=== PATIENT | female | born 1975 | race Caucasian/White ===

== ENCOUNTER 2017-08-17 10:52 | Inpatient (IN) ==
[2017-08-17] MEDS ORDERED: CeFAZolin Syr 2,000MG/20 ML 2,000 MG/20 ML SYRINGE IVPB ONE (11:38)
[2017-08-17] MEDS ORDERED: Lidocaine -MPF 1% 2 ML VIAL ID ONE (11:38)
--- NOTE | 2017-08-17 11:42 | Anesthesia Evaluation PreOp ---
Date of Encounter: 08/17/17 Time of Encounter: 11:39 - Past History Planned Operation: Lap assisted hysterectomy, LSO, poss BSO Cardiac History: Denies any Significant Hx Pulmonary History: Denies Any Significant HX [employer] DE[employer]ER[employer] History: Other (Vertigo) Other Medical History: Other (Irregular bleeding, Pelvic pain, Dysmenorrhea, Subserous leiomyoma of uterus) Anesthesia History: No Prior Anesthetic Complications, Past Anesthesia ( appendectomy, section x2, left ovarian cyst, tubal ligation) : No Test: Negative Alcohol Use: none Drug use: none Medications and Allergies Ketorolac [Toradol] 10 mg PO Q6HR #8 tablet 08/02/17 [Rx] 3 Allergy/AdvReac Type Severity Reaction Status Date / Time iodine Allergy Anaphylaxis Verified 08/02/17 13:00 - Meds/Allergy Pre-op Review Medications Reviewed: Yes Allergies Reviewed: Yes Beta Blockers on Current Med List: No Anesthesia Results - Labs Laboratory Tests 08/02/17 08/02/17 08/02/17 13:00 13:37 13:37 Hgb 14.7 Hct 42.8 Plt Count 274 PT 11.4 INR 1.1 APTT 29.8 Sodium Potassium BUN Creatinine Glucose Calcium Urine Test Negative 08/02/17 13:37 Hgb Hct Plt Count PT INR APTT Sodium 138 Potassium 3.9 BUN 15 Creatinine 1.14 H Glucose 108 H Calcium 9.6 Urine Test Anesthesia Exam O2 Sat Height 5' 10" Height 1.73 m Weight 104.326 kg Vital Signs Temp Pulse Resp BP Pulse Ox 99.2 F 72 18 115/79 97 08/17/17 11:27 08/17/17 11:27 08/17/17 11:27 08/17/17 11:27 08/17/17 11:27 NPO (# of Hours): >8 - HEENT Mallampati: I Teeth: Normal Oral Opening: Greater than 3 - Cardiac Rhythm: Regular - Pulmonary Breath Sounds: bilateral Clear Anesthesia Assess/Plan ASA Score: 2 Modified [place] Scale for Level of Consciousness: Cooperative, oriented, and tranquil Anesthetic Plan: General Monitoring Plan: Standard Monitors Recovery Plan: PACU Anes Supervising Prov Stmt: I have participated in the evaluation of this patient. Patient informed and consented. Risks, benefits, and alternatives discussed. Patient wishes to proceed.
[2017-08-17] MEDS: Ringers Solution, Lactated 1,000 ML IVC SCH ×3 (11:50→16:53)
[2017-08-17] MEDS ORDERED: Lidocaine/EPI 1:100k 1% 20 ML VIAL ONE (12:14)
[2017-08-17] MEDS ORDERED: Pregabalin 75 MG CAPSULE PO ONE (12:22)
[2017-08-17] MEDS ORDERED: Lidocaine -MPF 2% 2 ML VIAL ONE (12:37)
[2017-08-17] MEDS ORDERED: Dexamethasone 4 MG/ML VIAL ONE (12:37)
[2017-08-17] MEDS ORDERED: *HR* FentaNYL (PF) 100 MCG/2 ML VIAL ONE (12:38)
[2017-08-17] MEDS ORDERED: *HR* Propofol 200 MG/20 ML VIAL IVP ONE (12:39)
[2017-08-17] MEDS ORDERED: *HR* Midazolam HCl 2 MG/2 ML VIAL ONE (12:39)
--- NOTE | 2017-08-17 12:45 | History & Physical Report ---
Date of Encounter: 08/17/17 Time of Encounter: 12:44 24 Hour HP Update - Instructions Instructions: If the History and Physical is less than 30 days old and was completed prior to A.M. admission and or procedure and has NOT been updated on calendar day of procedure please complete this update prior to performing procedure. - Update Patient reports changes in Medical Condition: No Changes in examination, assessment, or condition: No Changes in Medication: No Preop tests/diagnostics Reviewed: Yes Surgery Remains Indicated: Yes Consent for Planned Operative Procedure(s) Verified: Yes - Pre-Operative Checklist Preoperative Checklist Indicated: Yes Prophylactic Antibiotic Ordered: Yes Home Medications Include Beta Socorro: No Beta Socorro Taken Today (Day of Surgery): No Beta Socorro Taken Yesterday (Day Prior to Surgery): No Is VTE Prophylaxis Indicated?: Yes
[2017-08-17] MEDS ORDERED: Ketorolac 30 MG/ML VIAL ONE (13:31)
[2017-08-17] MEDS ORDERED: Ondansetron 4 MG/2 ML VIAL ONE (13:34)
[2017-08-17] MEDS ORDERED: *HR* HYDROmorphone 2 MG/ML SYRINGE ONE (13:57)
[2017-08-17] MEDS ORDERED: *HR* HYDROmorphone (PF) 1 MG/ML SYRINGE IVP PRN ×2 (14:46→16:54)
[2017-08-17] MEDS ORDERED: *HR* Promethazine 25 MG/ML VIAL IVP PRN (14:46)
--- NOTE | 2017-08-17 16:13 | Anesthesia Evaluation Post Op ---
Date of Encounter: 08/17/17 Time of Encounter: 16:13 - Vital Signs Vital Signs: vss - Lungs Lungs: Clear Ascult./Percussion - Airway Airway: Non-obstructed - Cardiovascular Baseline Rhythm - Mental Status Mental Status: Asleep with brisk response to light stimulation - Pain Pain Scale used: [place] (Faces) - Nausea Vomiting Nausea Vomiting: Not Present - Hydration Hydration: Ice chips - Discharge PostOp Status: Transfer Patient to floor
--- NOTE | 2017-08-17 16:20 | OB/GYN Procedure Note ---
Hysterectomy - Diagnosis Date of procedure: 08/17/17 Hysterectomy pre-op: chronic pelvic pain, menorrhagia, symptomatic leiomyomata Post-op diagnosis: other (Pelvic adhesions) - Procedure Hysterectomy procedure: total abdominal hysterectomy, left salpingo oophorectomy , other (Lysis of adhesions, cystoscopy), bilateral salpingectomy Surgeon: Anup Durham [employer] Social Worker: Jacquie Carmona Anesthesia Type: General Estimated blood loss (cc): 800 Complications: none Fluids: crystalloid Specimens: uterus, cervix, left ovary, right fallopian tube, left fallopian tube Findings: Dense adhesions between bowel and anterior abdominal wall from umbilicus to the right lower quadrant and right upper quadrant. Enlarged uterus with large fibroid and lower uterine segment. Normal right ovary and left ovary. Normal fallopian tubes bilaterally. Normal bladder with patent bilateral ureters and of procedure. Disposition: PACU Narrative: Patient's a 41-year-old female long history of prolonged irregular heavy bleeding. She also has severe pelvic pain. She is recently been the emergency room ultrasound showed an enlarged uterus. She was put on progesterone bleeding did slow. She has history of prior appendectomy prior cystectomy and history of section 2. She desired definitive surgical management with hysterectomy bilateral salpingectomy and left oophrectomy. She did desire to leave right ovary of possible. We did consent for possible laparoscopic- assisted vaginal hysterectomy with left salpingo-oophrectomy. Possible right salpingo-oophorectomy if right ovary was abnormal. She did agree that she may have dense pelvic adhesions and did consent for possible open hysterectomy if needed. She is aware of operative risks and signed appropriate consent. Description procedure: Patient was taken operating room where general anesthesia was administered. She is prepped draped in usual sterile fashion low dorsolithotomy position. Bladder was drained of clear urine with Heller catheter. Cervix was visualized and grasped single-toothed tenaculum and acorn uterine manipulator was placed and cervix. Scalpel was used to make 5 mm incision in the left upper quadrant. 5 mm trocar was introduced insufflation was performed. Dense adhesions were noted between the bowel and omentum and anterior abdominal wall from the level of the umbilicus to approximately just above the uterus. There were also adhesions in the right lower quadrant and right upper quadrant. These adhesions included loops of small bowel to the anterior abdominal wall and I felt that it would not be safe to proceed with laparoscopy. There were relatively little adhesions and lower pelvis over the uterus and I felt that things still skin incision with open procedure would be the best route to avoid adhesions and possible complications. This point trocar was removed incision was closed with 4-0 Vicryl. Single-tooth tenaculum and acorn uterine manipulator was removed. I changed my gown and gloves and Pfannenstiel incision was then made. I sharply took this down the rectus fascia which was incised the midline fascial incision was extended bilaterally. Rectus muscles divided midline peritoneum was entered sharply. Peritoneal incision was extended bilaterally. There is some omental adhesions in the right lower quadrant to the anterior abdominal wall these were sharply taken down. Patient was placed in Trendelenburg position. O'Vic-O'Messer retractor was placed and bowel were packed out of the operative field. Uterus was pulled upwards with 2 Bina clamps around the corneal uterus from each side. Right ovary was normal and therefore per patient's request right ovary was left in place. Right fallopian tube was pulled upwards LigaSure was used to cauterize and transect the mesosalpinx. LigaSure was taken across utero- ovarian ligament. LigaSure was then taken across the round ligament on the right side. There were adhesions between the bladder and the snf up the lower uterus. Metzenbaum scissors were used to take these adhesions down. These adhesions were sharply taken down over top of the cervix. Further cauterized the round ligaments on the right side with LigaSure this was then transected. Infundibulopelvic ligament was identified on the left side LigaSure was taken across this twice and then proximal and to the uterus I transected the infundibulopelvic ligament. Round ligament on the right side was then cauterized and transected with LigaSure. Broad ligament was then cauterized and transected with LigaSure. I further dissected the adhesions down off the lower cervix. There was a fair amount of oozing was I did this controlled this the best I could. This point was difficult to visualize the cervix because of the large fibroid on the lower uterine segment. Curved Angie clamps across the parametrium on each side these were clamped transected and ligated with 0 Vicryl suture. This point was able to transect off the cervix and the uterus and fibroid and lower uterine segment. This point there was some brisk bleeding from ascending vessels from the cervix. This accounts for most of the blood loss of the procedure. I did place a straight Heaneys along the cervix on each side and pulled upwards. There clot was used to grasp the cervix and pulled upwards. I transected across proximally from the straight Angie clamps right side long cervix and ligated with 0 Vicryl suture. Curved Angie clamps placed along the cervix these were transected and ligated with 0 Vicryl suture. 2 more curved Angie clamps were used along the top of the vagina below the cervix I transected these risks of cervix was removed the vagina is was closed with 0 Vicryl suture. Third irrigation was performed there was some oozing from the midline of the vagina I did find an opening along the midline of the vagina this was closed with 0 Vicryl suture again irrigation was performed hemostasis was ensured there were some oozing along the left broad ligament there was a bleeder noted which was grasped with Angie clamp and cauterized and hemostasis was ensured this point we watched and there is no further active bleeding I did give him performed cystoscopy both ureters were patent and there is no evidence of bladder trauma. Again we inspected the pelvis and there was no further active bleeding. Fascia was closed 0 Vicryl in running manner. Deep subcutaneous tissue was closed with several 0 chromic sutures in an interrupted manner. Skin edges reapproximated with mariposa. Then the procedure all sponge counts counts are correct patient was taken recovery in good condition.
[2017-08-17 16:31] LABS: Hematocrit 35.4 % (35.3-44.9); Hemoglobin 12.3 g/dL (11.5-15.4)
[2017-08-17] MEDS ORDERED: *HR* HYDROcodone/Acet 5/325 mg TABLET PO PRN (16:54)
[2017-08-17] MEDS ORDERED: Ondansetron 4 MG/2 ML VIAL IVP PRN (16:54)
[2017-08-17] MEDS ORDERED: Naloxone 0.4 MG/ML INJ IVP PRN (16:54)
[2017-08-17] MEDS ORDERED: Ringers Solution, Lactated 1,000 ML IVC SCH (16:54)
[2017-08-17] MEDS: *HR* OxyCODONE/APAP 5/325 TABLET PO PRN (23:11)
[2017-08-18] MEDS: *HR* OxyCODONE/APAP 5/325 TABLET PO PRN ×5 (03:34→23:17)
[2017-08-18 09:49] LABS: Basophils % 0.2 %; Eosinophils % 0.1 %; Hematocrit 29.5 % (35.3-44.9); Hemoglobin 10.1 g/dL (11.5-15.4); Immature Granulocytes % 0.8 % (0-4); Lymphocytes # 1.8 K/mcL (0.6-4.6); Mean Corpuscular HGB Conc 34.2 g/dL (31.6-35.5); Mean Corpuscular Hemoglobin 29.6 pg (28.0-33.3); Mean Corpuscular Volume 86.5 fL (83.0-100.0); Monocytes # 1.3 K/mcL (0.0-1.3); Monocytes % 7.5 %; Neutrophils # 14.5 K/mcL (1.6-8.9); Platelet Count 191 K/mcL (140-400); Red Blood Count 3.41 M/mcL (3.82-4.97); Red Cell Distribution Width 13.2 % (11.5-14.5); Segmented Neutrophils % 81.4 %
[2017-08-18] MEDS ORDERED: Ibuprofen 600 MG TABLET PO PRN (11:31)
[2017-08-19] MEDS: *HR* OxyCODONE/APAP 5/325 TABLET PO PRN ×2 (05:45→10:54)
[2017-08-19 09:21] VITALS: BP 105/73
--- NOTE | 2017-08-19 11:39 | Discharge Summary ---
Date of Encounter: 08/19/17 Time of Encounter: 11:40 - Discharge Diagnosis (1) Status post abdominal hysterectomy Priority: Primary Status: Acute - Discharge Medications Prescriptions: OxyCODONE/APAP 5/325 [Percocet 5/325 MG] 1 each PO Q4HR PRN #42 tablet PRN Reason: Pain Ibuprofen [Motrin] 600 mg PO Q6HR PRN #30 tablet PRN Reason: Pain Home Medications: Meclizine HCl [Verticalm] 25 mg PO Q8H PRN 08/17/17 [History] metroNIDAZOLE [Flagyl] 500 mg PO BID 08/17/17 [History] Ibuprofen [Motrin] 600 mg PO Q6HR PRN #30 tablet 08/19/17 [Rx] OxyCODONE/APAP 5/325 [Percocet 5/325 MG] 1 each PO Q4HR PRN #42 tablet 08/19/17 [Rx] Allergies/Adverse Reactions: 3 Allergy/AdvReac Type Severity Reaction Status Date / Time iodine Allergy Anaphylaxis Verified 08/17/17 12:01 Data Procedures and tests throughout hospitalization: Laboratory Tests 08/17/17 08/17/17 08/18/17 16:19 16:19 09:35 WBC 17.8 H RBC 3.41 L Hgb 12.3 10.1 L D Hct 35.4 29.5 L MCV 86.5 MCH 29.6 MCHC 34.2 RDW 13.2 Plt Count 191 MPV 10.0 Immature Gran % 0.8 Seg Neutrophils % 81.4 Lymphocytes % 10.0 Monocytes % 7.5 Eosinophils % 0.1 Basophils % 0.2 Neutrophils # 14.5 H Lymphocytes # 1.8 Monocytes # 1.3 Eosinophils # 0.0 Basophils # 0.0 Blood Type O POSITIVE Antibody Screen NEGATIVE Date of admission: 08/17/17 16:14 Primary care physician: Shayan Cornejo MD Discharging clinician: Arnulfo Chapin Anticipated date of discharge: 08/19/17 - Patient Status Disposition: Home, Self-Care Condition: Good Functional capacity at discharge: independent ambulation Overall status at discharge: patient is progressing back to baseline - Discharge Instructions Instructions: Abdominal Hysterectomy (DC) Follow Up With: Shayan Cornejo MD [Primary Care Provider] - Anup Durham MD [Partnered Physician] - - Diet and Activity Activity: increase activity as tolerated Diet: advance to your usual diet Hospital Course CALCULUS T[employer]OR Reason for admission: other (Chronic pelvic pain, menorrhagia, symptomatic leiomyomata) Post op complications: None Discharge diagnosis: other (Same) Procedures: Total abdominal hysterectomy Hospital course: Patient is a 41-year-old female who presented for hysterectomy secondary to menorrhagia and chronic pelvic pain. A laparoscopic-assisted vaginal hysterectomy was attempted but once they got then identified a significant fibroid in the lower uterine segment and she was converted over to a total abdominal hysterectomy. Surgery went without any difficulty hospital course was unremarkable. Diet was advanced slowly on hospital day #1 by day #2 patient was tolerating diet, pain was well-controlled passing gas ready to go home. Patient will be discharged home with prescription for Motrin 600 mg #30 Percocet 5 mg #42 she will follow-up in the office next week for staple removal. Patient condition at the time of discharge was stable Time Attestation: Total time spent providing and/or coordinating discharge services: Exam - Constitutional Vitals: Temp Pulse Resp BP Pulse Ox 98.2 F 101 16 105/73 95 08/19/17 07:30 08/19/17 07:30 08/19/17 07:30 08/19/17 07:30 08/19/17 05:25 General appearance IM: mild distress, A&O X 3 - Respiratory Respiratory exam: Present: CTAB - Cardiovascular Cardiovascular exam IM: Present: RRR - GI/Abdominal GI/Abdominal exam IM: normal bowel sounds Incision: normal, dry, intact - Rectal Rectal exam: deferred - VTE Documentation of Mechanical Device: Intermittent pneumatic compression device
== END 2017-08-19 12:42 | disposition home or self-care (01) | DRG 743 ==
LOC: SAMDAY 10:52 → 1NENUOBS 16:14
PROVIDERS: ADMIT Obstetrics & Gynecology; ATTEND Obstetrics & Gynecology
PROC: GYNLAVH (ICD-10-PCS; 2017-08-17 13:00)